=== PATIENT | female | born 1955 | race Caucasian/White ===

== ENCOUNTER 2024-01-05 09:09 | Inpatient (IN) | payer MEDICARE, BC ==
[2024-01-04 13:48] LABS: BASOPHILS # (AUTO) 0.1 X10'3 (0-0.2); EOSINOPHILS # (AUTO) 0.3 X10'3 (0-0.9); LYMPHOCYTES # (AUTO) 4.3 X10'3 (1.1-4.8); MONOCYTES # (AUTO) 0.7 X10'3 (0-0.9); NEUTROPHILS # (AUTO) 4.1 X10'3 (1.8-7.7); PRE OP WHITE BLOOD COUNT 9.5 10'3 (4.8-10.8); RED CELL DISTRIBUTION WIDTH 12.9 % (11.5-14.5)
[2024-01-04 13:51] LABS: BASOPHILS % (AUTO) 1.4 % (0-1); EOSINOPHILS % (AUTO) 3.5 % (0-6); LYMPHOCYTES % (AUTO) 44.8 % (21-51); MEAN CORPUSCULAR HEMOGLOBIN 34.4 PG (27.0-31.0); MEAN CORPUSCULAR HGB CONC 34.7 g/dL (33.0-36.5); MEAN CORPUSCULAR VOLUME 99.2 FL (78-98); MEAN PLATELET VOLUME 7.7 FL (7.4-10.4); MONOCYTES % (AUTO) 6.9 % (2-12); NEUTROPHILS % (AUTO) 43.4 % (42-75); PRE OP HEMATOCRIT 42.8 % (35.0-45.0); PRE OP HEMOGLOBIN 14.9 g/dL (12.0-16.0); PRE OP PLATELET COUNT 250 X10'3 (140-440); RED BLOOD COUNT 4.32 X10'6 (4.20-5.60)
[2024-01-04 13:59] LABS: PRE OP PROTIME 10.6 SECONDS (9.0-12.0)
[2024-01-04 14:01] LABS: ALBUMIN 3.5 G/DL (3.4-5.0); ALBUMIN/GLOBULIN RATIO 0.9 (1.1-1.5); ALKALINE PHOSPHATASE 94 IU/L (46-116); BLOOD UREA NITROGEN 8 MG/DL (7-18); CALCIUM 9.1 MG/DL (8.5-10.1); CHLORIDE 106 MMOL/L (99-107); CREATININE 0.73 MG/DL (0.40-0.90); PRE OP ALT 23 U/L (30-65); PRE OP ANION GAP 10 (8-16); PRE OP AST 15 U/L (10-37); PRE OP BILIRUB, TOTAL 0.3 MG/DL (0.0-1.0); PRE OP GLUCOSE 81 MG/DL (70-104); PRE OP POTASSIUM 3.8 MMOL/L (3.4-5.1); PRE OP SODIUM 142 MMOL/L (135-145); TOTAL CARBON DIOXIDE 26.3 MMOL/L (24-32); TOTAL PROTEIN 7.2 G/DL (6.4-8.2); eGFR 79 ML/MIN
[~2024-01-05] VITALS: Ht 160 cm; Wt 55.3 kg
[2024-01-05] MEDS: DOCUMENT DATE & TIME OF BETA-BLOCKER PO ONE (05:30)
[2024-01-05] MEDS: cefazolin 2gm/D5W 100mL 100 ML IV ONE (05:30)
[~2024-01-05 09:09] MED LIST: ATEN25TA PO; ATOR-2 PO; CHOL200074 PO; CLOP75TA34 PO; CYAN100082 PO; CYCL-394 PO; DULO60CA65 PO; FAMO40TA7 PO; MULT-1085 PO; ROPI1TAB47 PO; SUCR1TAB PO; VITC500T PO
[2024-01-05] MEDS: famotidine 20mg tablet PO ONE (10:07)
[2024-01-05] MEDS ORDERED: ringers solution, lacted 1,000 ML IV SCH (10:35)
[2024-01-05] MEDS ORDERED: ceFOXitin 2GM-NS 100mL ADDvant 100 ML IV ONE (10:55)
[2024-01-05 11:24] LABS: BILIRUBIN,URINE NEGATIVE (Neg); CLARITY,URINE SLIGHTLY CLOUDY (Clear); COLOR,URINE YELLOW (Yellow); GLUCOSE, URINE NEGATIVE (Neg); KETONES,URINE NEGATIVE (Neg); LEUKOCYTE ESTERASE ,URINE NEGATIVE (Neg); NITRITES, URINE NEGATIVE (Neg); OCCULT BLOOD,URINE NEGATIVE (Neg); PROTEIN,URINE NEGATIVE (Neg); UROBILINOGEN,URINE 0.2 E.U/dL (0.2-1.0)
[2024-01-05 11:58] LABS: UA COLLECTION TYPE CLN CATCH MIDSTREAM
[2024-01-05 12:00] LABS: BACTERIA,URINE 1+ /HPF (Neg); MUCUS STRANDS NONE SEEN /LPF (Neg); RBC,URINE 0-2 /HPF (0-2); SQUAMOUS EPITHELIAL CELL,UR MODERATE /LPF (FEW); WBC,URINE 0-4 /HPF (0-4)
== END 2024-01-05 12:00 | disposition home or self-care (01) | DRG 301 ==
LOC: PAS IN 09:09
PROVIDERS: ADMIT Surgery; ATTEND Surgery
DX: I70.213 Atherosclerosis of native arteries of extremities with intermittent claudication, bilateral legs (principal); I10 Essential (primary) hypertension; K21.9 Gastro-esophageal reflux disease without esophagitis; D64.9 Anemia, unspecified; E78.5 Hyperlipidemia, unspecified; Z53.8 Procedure and treatment not carried out for other reasons; F41.9 Anxiety disorder, unspecified; F32.9 Major depressive disorder, single episode, unspecified; Z90.710 Acquired absence of both cervix and uterus; Z90.49 Acquired absence of other specified parts of digestive tract; Z95.820 Peripheral vascular angioplasty status with implants and grafts
CPT/HCPCS: 36415; 71046; 80053; 81001; 82948; 85025; 85610; 85730; 86885; 86900; 86901; 87081; 93970; J0690; J7120

== ENCOUNTER 2025-07-16 10:52 | Outpatient (CLI) | payer OTHER, BC ==
--- NOTE | 2025-07-16 13:14 | VASCULAR REPORT ---
Ankle Brachial Index - Single Level Date: 07/16/2025 11:53 AM Clinical History: Aorto bifem bypass graft Comparison: None The above named patient was referred for a PHYSIOLOGIC ARTERIAL DOPPLER EVALUATION. The evaluation includes blood pressures, ankle brachial indices (LAURY), and segmental Doppler waveform analysis at rest and post exercise when applicable. Toe brachial indices (TBI) taken when necessary. Patient OUT-PATIENT AB Left AB Brachial 142mmHg Brachial 142mmHg Ankle(PT) 142mmHg 1.00 Ankle(PT) 140mmHg 0.99 Ankle(DP) 110mmHg Ankle(DP) 130mmHg CONCLUSION 1. Bilateral ankle-brachial index are normal per blood pressures.
--- NOTE | 2025-07-16 13:15 | VASCULAR REPORT ---
BILATERAL Lower Extremity Arterial Duplex Date: 07/16/2025 11:13 AM Clinical History: AO-bifem bypass graft placed one year ago. Comparison: VASC VL LAURY on DOS: 07/16/25, CT CTA ABDOMEN LOWER EXTR RUNOFF on DOS: 01/12/24, VL VENOUS on DOS: 01/04/24 Technique: Duplex Doppler evaluation including color Doppler and spectral/pulsed waveform analysis of the lower extremity arteries was performed. The above named patient was referred for a NON-INVASIVE LOWER EXTREMITY ARTERIAL EVALUATION. The evaluation includes grayscale imaging, color flow Doppler and spectral analysis of the lower extermity arteries. Patient OUT-PATIENT Inarcations AO-bifem bypass graft placed one year ago. Risk Factors Hypertension Smoking VELOCITY AND DOPPLER WAVEFORM ANALYSIS RIGHT cm/se Waveform Severity LEFT cm/se Waveform Severity C c dCFA 115.3 Reversal dCFA 137.7 Reversal Prof Fem 170.9 Multiphasic Prof Fem 94.3 Multiphasic Art. Art. Fem Art 170.9 Multiphasic Fem Art 132.0 Multiphasic Prox. Prox. Fem Art 162.1 Multiphasic Fem Art 136.0 Multiphasic Mid Mid. Fem Art 125.2 Multiphasic Fem Art 108.8 Dist. Dist Pop Art(AK) 98.8 Multiphasic Pop Art(AK) 96.3 Multiphasic Pop Art(BK) 89.0 Multiphasic Pop Art(BK) 84.1 Multiphasic NOODLE CATALYST MAKER Dist. 80.4 Multiphasic NOODLE CATALYST MAKER Dist. 72.8 Multiphasic Per Art Dist. 87.7 Multiphasic Per Art Dist. 56.9 Multiphasic DPA 32.0 Multiphasic DPA 66.5 Multiphasic CONCLUSION Aortobifem bypass graft appear pain bilaterally. Multiphasic flow noted throughout both bypass grafts in both lower extremities. No stenosis or occlusion noted bilaterally.
== END 2025-07-16 23:59 | disposition home or self-care (01) ==
LOC: RAD 10:52
PROVIDERS: ATTEND Surgery
DX: I73.9 Peripheral vascular disease, unspecified (principal); I10 Essential (primary) hypertension
CPT/HCPCS: 93922; 93925